=== PATIENT | female | born 1970 | race Caucasian/White ===

== ENCOUNTER 2022-12-13 10:49 | Outpatient (CLI) | payer OTHER | END 2022-12-13 10:50 | disposition home or self-care (01) | LOC: BICCT 10:49 | PROVIDERS: ATTEND Physician Assistant | DX: K70.9 Alcoholic liver disease, unspecified (principal); K85.20 Alcohol induced acute pancreatitis without necrosis or infection; K46.9 Unspecified abdominal hernia without obstruction or gangrene; R10.13 Epigastric pain; K76.0 Fatty (change of) liver, not elsewhere classified | CPT/HCPCS: 74177; 82565 ==

== ENCOUNTER 2022-12-28 00:28 | Emergency (ER) | payer OTHER | END 2022-12-28 02:42 | disposition left against medical advice (07) | LOC: ERS 00:28 | DX: Z53.29 Procedure and treatment not carried out because of patient's decision for other reasons (principal) | CPT/HCPCS: 70450; 70486; 72125; 93005 ==